=== PATIENT | female | born 1965 | race Caucasian/White ===

== ENCOUNTER 2020-07-01 05:52 | Emergency (ER) | payer BC ==
[2020-07-01] MEDS ORDERED: Tamsulosin 0.4 MG Cap.ER PO ONE (06:46)
--- NOTE | 2020-07-01 08:06 | EDM.PDOC ---
ED HPI GENERAL MEDICAL PROBLEM - General Chief Complaint: Lower Extremity Injury/Pain Stated Complaint: BLOOD CLOT Time Seen by Provider: 07/01/20 07:15 Source of Information: Reports: Patient History Limitations: Reports: No Limitations - History of Present Illness INITIAL COMMENTS - FREE TEXT/NARRATIVE: 54 yo female with a recent dx of Covid 19 presents with puffiness of the R foot. Wants to make sure she does not have a DVT. Did have bunion surgery on that foot not long ago. No redness. Does not feel feverish. Onset: Today Onset Date: 07/01/20 Duration: Hour(s):, Constant Location: Reports: Lower Extremity, Right Quality: Reports: Dull Severity: Mild Improves with: Reports: Medication Worsens with: Reports: None Context: Reports: Other (See HPI) Associated Symptoms: Reports: Other (mild diffuse sx's, not new) Treatments BUSINESS ACCOUNT LEADER: Reports: Other (see below) (none) - Related Data Allergies Allergy/AdvReac Type Severity Reaction Status Date / Time amoxicillin [Amoxicillin] Allergy Rash Verified 07/01/20 06:04 thimerosal Allergy Rash Verified 07/01/20 06:04 Home Meds: Home Meds Albuterol Sulfate [Proair Hfa] 1 - 2 puff IH Q4HR PRN 03/10/14 [History] Fluticasone Propionate [Flonase] 2 spray IH DAILY 03/10/14 [History] Multivitamin [Multi Vitamin Daily] 1 each PO DAILY 03/10/14 [History] Tretinoin 20 gm TP DAILY 03/10/14 [History] Triamcinolone Acetonide [Triamcinolone Acetonide 0.1% Crm] 1 gm TOP BID PRN 07/14 [History] Zinc 50 mg PO DAILY 07/01/20 [History] Past Medical History Other Musculoskeletal History: foot surgeries Social & Family History - Tobacco Use Smoking Status *Q: Never Smoker Review of Systems - Review of Systems Review Of Systems: See Below Constitutional: Reports: No Symptoms Musculoskeletal: Reports: Other (R foot slightly puffy) Skin: Reports: No Symptoms, Other (healed surgical scar present over R MT jt of great toe. ) Neurological: Reports: No Symptoms ED EXAM, GENERAL - Physical Exam Exam: See Below Exam Limited By: No Limitations General Appearance: Alert, WD/WN, No Apparent Distress Extremities: Pedal Edema (Trace edema of the R foot. ) Neurological: Alert, Oriented, CN II-XII Intact, Normal Cognition, No Motor/Sensory Deficits Psychiatric: Normal Affect, Normal Mood Skin Exam: Warm, Dry, Intact, Normal Color, No Rash, Other (well healed surgical scar of the R great toe where she had her bunion surgery.) Course - Vital Signs Text/Narrative:: Venous doppler of R LE is neg for DVT. Last Recorded V/S: Last Vital Signs Temp 37.2 C 07/01/20 06:07 Pulse 81 07/01/20 06:07 Resp 18 07/01/20 06:07 BP 139/71 07/01/20 06:07 Pulse Ox 100 07/01/20 06:07 - Orders/Labs/Meds Orders: Active Orders 24 hr Category Date Time Status VL Duplex Lwr Ext Veins Ltd Rt [US] Stat Exams 07/01/20 06:40 Taken Meds: Medications Discontinued Medications Generic Name Dose Route Start Last Admin Trade Name Freq PRN Reason Stop Dose Admin Tamsulosin HCl 0.4 mg 07/01/20 06:46 07/01/20 06:47 Flomax PO 07/01/20 06:47 Not Given ONETIME ONE Departure - Departure Time of Disposition: 08:07 Disposition: Home, Self-Care 01 Condition: Good Clinical Impression: Swelling of right foot - Discharge Information *PRESCRIPTION DRUG MONITORING PROGRAM REVIEWED*: Not Applicable *COPY OF PRESCRIPTION DRUG MONITORING REPORT IN PATIENT ZAIDA: Not Applicable Referrals: PCP,None [Primary Care Provider] - Additional Instructions: Follow up with your dial painter as scheduled. Elevate foot as able to reduce swelling. Avoid salt or salty foods. Sepsis Event Note (ED) - Evaluation Sepsis Screening Result: No Definite Risk - Focused Exam Vital Signs: Vital Signs Temp Pulse Resp BP Pulse Ox 07/01/20 06:07 37.2 C 81 18 139/71 100
--- NOTE | 2020-07-01 09:06 | US ---
VL Duplex Lwr Ext Veins Ltd Rt INDICATION: pain, swelling after Covid FINDINGS: Ultrasound examination of the lower extremity using Doppler and compressive technique demonstrates that the common femoral, femoral, and popliteal veins are patent, and compressible throughout. The calf veins were segmentally visualized and are negative where seen. IMPRESSION: Negative for deep venous thrombosis.
== END 2020-07-01 08:13 | disposition home or self-care (01) ==
LOC: JP.ED 05:52
DX: M79.89 Other specified soft tissue disorders (principal); Z88.1 Allergy status to other antibiotic agents; Z88.7 Allergy status to serum and vaccine
CPT/HCPCS: 93971-26; 93971-RT; 99283; 99283-25

== ENCOUNTER 2021-06-16 06:19 | Day surgery (SDC) | payer BC, OTHER ==
[2021-06-16] MEDS ORDERED: Sodium Chloride 0.9% 1,000 ML IV SCH (07:00)
[2021-06-16] MEDS ORDERED: Propofol 200 MG/20 ML SDV ONE (07:30)
[2021-06-16] MEDS ORDERED: Midazolam 1 MG/ML 2 ML SDV ONE (07:31)
[2021-06-16] MEDS ORDERED: fentaNYL 100 MCG/2 ML SDV ONE (07:31)
--- NOTE | 2021-06-17 08:10 | OR ---
DATE OF PROCEDURE: 06/16/2021 SURGEON: Bharath Shelton MD PROCEDURE: Colonoscopy. FINDINGS: Diverticulosis, mild, mostly limited to sigmoid colon without evidence of diverticulitis or bleeding. COMPLICATIONS: None. SOCIAL MEDIA EXECUTIVE: None. ANESTHESIA: MAC. PREOPERATIVE DIAGNOSIS: Screening colonoscopy. POSTOPERATIVE DIAGNOSIS: Screening colonoscopy. RISKS: Risks, benefits, alternatives, and limitations including, but not limited to infection, bleeding, perforation, false positives and false negatives were explained to the patient and she wished to proceed. PROCEDURE IN DETAIL: The patient was placed in left lateral decubitus position. Digital rectal exam was performed without abnormality. Scope was introduced and advanced atraumatically to the ileocecal valve. A photo was taken of the appendiceal orifice. Scope was brought back through the ascending, transverse, descending colon, and retroflexed. No evidence of old or new blood. No masses. No polyps. The diverticulosis was described as mild, mostly limited to sigmoid colon without evidence of diverticulitis or bleeding. No abnormalities on retroflexion. Greater than 8 minutes was spent removing the scope. The prep was acceptable, approximately 90% of the luminal surface could be seen. The patient tolerated the procedure well. Bharath Shelton MD /[id number]
== END 2021-06-16 09:35 | disposition home or self-care (01) ==
LOC: JP.SDS 06:19
PROVIDERS: ATTEND Surgery
DX: Z12.11 Encounter for screening for malignant neoplasm of colon (principal); K57.30 Diverticulosis of large intestine without perforation or abscess without bleeding
CPT/HCPCS: 45378; J2250; J2704; J3010; J7030